=== PATIENT | female | born 1995 | race Caucasian/White ===

== ENCOUNTER 2024-06-22 06:40 | Outpatient (RCR) | payer BC, SELFPAY | END 2024-06-22 23:59 | disposition home or self-care (01) | LOC: RPT 06:40 | PROVIDERS: ATTENDING PHYSICIAN Obstetrics & Gynecology | DX: R32 Unspecified urinary incontinence (principal); M62.89 Other specified disorders of muscle | CPT/HCPCS: 97161; 97530 ==

== ENCOUNTER 2024-07-26 13:57 | Outpatient (RCR) | payer BC, SELFPAY | END 2024-07-26 23:59 | disposition home or self-care (01) | LOC: RPT 13:57 | PROVIDERS: ATTENDING PHYSICIAN Obstetrics & Gynecology | DX: R32 Unspecified urinary incontinence (principal); M62.89 Other specified disorders of muscle | CPT/HCPCS: 97110; 97112 ==

== ENCOUNTER 2024-08-25 16:39 | Outpatient (RCR) | payer BC, SELFPAY | END 2024-08-25 23:59 | disposition home or self-care (01) | LOC: RPT 16:39 | PROVIDERS: ATTENDING PHYSICIAN Obstetrics & Gynecology | DX: R32 Unspecified urinary incontinence (principal); M62.89 Other specified disorders of muscle; Z73.6 Limitation of activities due to disability | CPT/HCPCS: 97110; 97112; 97140 ==

== ENCOUNTER 2024-09-06 18:41 | Outpatient (RCR) | payer BC, SELFPAY | END 2024-09-06 23:59 | disposition home or self-care (01) | LOC: RPT 18:41 | PROVIDERS: ATTENDING PHYSICIAN Obstetrics & Gynecology | DX: R32 Unspecified urinary incontinence (principal); M62.89 Other specified disorders of muscle; Z73.6 Limitation of activities due to disability | CPT/HCPCS: 97110; 97112; 97140 ==

== ENCOUNTER 2024-10-16 07:06 | Emergency (ER) | payer BC, SELFPAY ==
[2024-10-16 07:08] VITALS: BP 111/79
[2024-10-16 07:55] VITALS: BMI 29.8
--- NOTE | 2024-10-16 07:57 | ED.GENMED ---
History of Present Illness
General
Chief Complaint: Abdominal Symptoms
Time Seen by Provider: 10/16/24 07:38
History of Present Illness
History of Present Illness:
29-year-old female without significant past medical history presenting to the emergency department for nausea, vomiting, diarrhea. Patient reports that this evening. Reports that her daughter got sent home from daycare because another individual
had a gastrointestinal virus. Her developed symptoms yesterday, and she developed symptoms last evening. No associated abdominal pain. Denies chest pain, difficulty breathing. Denies blood in her stool. She has been unable to tolerate
food or liquid by mouth. She has been trying Pedialyte. She is concerned for dehydration. Denies fever. Denies additional acute medical complaints.
Phy Exam
Physical Exam
Physical Exam:
General: Well-appearing, no clinical signs of dehydration, nontoxic and in no acute distress
HEENT: protecting airway
Neck: appears supple
CV: Normal heart rate, regular rhythm, no evidence of cyanosis
Resp: No accessory muscle use, no increased work of breathing, lungs clear to auscultation bilaterally
Abd: Soft and non-distended, no tenderness to palpation
Extremities: No deformities, no swelling
Neuro: alert, no focal neurologic deficit
: deferred
Rectal: deferred
Psych: Normal affect
Skin: Intact
Course
Orders/Labs/Results
Orders:
Orders
10/16/24 07:54
Urinalysis Reflex To Culture Urgent
0.9% Sodium Chloride 1000 ml [Nss] 1,000 ml IV BOLUS
Ondansetron Injectable [Zofran] 4 mg IV NOW STA
10/16/24 08:15
Basic Metabolic Panel Urgent
Complete Blood Count/With Diff Urgent
Lipase Urgent
Abnormal Lab Results
10/16/24
08:15
WBC 11.3 H 10^3/uL
(4.8-10.8)
RDW 11.2 L %
(11.5-14.5)
MPV 10.9 H fL
(7.4-10.4)
Absolute Neuts (auto) 10.4 H 10^3/uL
(1.4-6.5)
Absolute Lymphs (auto) 0.4 L 10^3/uL
(1.2-3.4)
Neutrophils % 91.9 H %
(42.2-75.2)
Lymphocytes % 3.9 L %
(20.5-51.1)
Carbon Dioxide 20 L mmol/L
(22-30)
BUN 21 H mg/dl
(7-17)
Creatinine 0.5 L mg/dL
(0.6-1.0)
Glucose 117 H mg/dl
(70-99)
10/16/24 08:15
10/16/24 08:15
Vital Signs
Initial and Last Documented VS:
Initial Vital Signs
Temp Pulse Resp BP Pulse Ox
98.7 F 133 18 111/79 96
10/16/24 07:08 10/16/24 07:08 10/16/24 07:08 10/16/24 07:08 10/16/24 07:08
Last Documented Vital Signs
Temp Pulse Resp BP Pulse Ox
99.8 F 114 19 111/79 96
10/16/24 09:15 10/16/24 09:15 10/16/24 09:15 10/16/24 07:08 10/16/24 07:08
MDM/Problems Addressed
MDM/Problems Addressed:
29-year-old female presenting for nausea, vomiting, diarrhea. Vital signs are significant for tachycardia, however patient appears anxious.
On exam, patient is afebrile, nontoxic. Benign abdominal exam, no tenderness to abdomen, soft and nondistended. Symptom presentation and physical exam appears most consistent with viral gastroenteritis. Will treat patient therapeutically with IV
fluids, Zofran, screen with laboratory analysis and reassess for improvement with p.o. challenge.
09:45 - Patient's labs are unremarkable. Patient reports symptom improvement, able to tolerate p.o. At this time feel that she is stable for discharge. Advised bland diet for the next 24 hours. Return precautions discussed and patient verbalized
understanding
*Critical Care Note
Total Time (30-74mins, 75-104mins- exclusive of procedures): Not Applicable
ED Attending Note
-
Portions of this chart may have been created with voice recognition software.� Occasional wrong word or��sound alike� substitutions may have occurred due to the inherent limitations of voice recognition software.
Discharge Plan
Departure
Referrals:
Joseph Craig MD [Family Provider] -
Interventions
Interventions:
*Risk Screen - Suicide Last Done: 10/16/24 07:08
*General Assessment Last Done: 10/16/24 07:08
ED- Fall Risk Assessment Last Done: 10/16/24 07:55
*ED COVID-19 Vaccine History Last Done: 10/16/24 07:08
GI-Pqbmdx-Ywlauqoyfb Assessment Last Done: 10/16/24 07:55
Discharge Date and Time
Print Language: UGANDAN
[2024-10-16] MEDS: NSS 1000 IV (08:18)
[2024-10-16] MEDS: ZOFRAN 4 MG IV (08:18)
[2024-10-16 08:27] LABS: % Basophils 0.2 % (0-2); % Eosinophils 0.2 % (0-6); % Immature Granulocytes 0.3 % (0-0.5); % Lymphocytes 3.9 % (20.5-51.1); % Monocytes 3.5 % (1.7-9.3); % Neutrophils 91.9 % (42.2-75.2); Absolute Lymphocytes 0.4 10^3/uL (1.2-3.4); Absolute Monocytes 0.4 10^3/uL (0.1-0.6); Absolute Neutrophils 10.4 10^3/uL (1.4-6.5); Hematocrit 42.8 % (37.0-47.0); Hemoglobin 14.8 g/dL (12.0-16.0); Mean Corp Hgb Conc. 34.6 g/dL (33.0-37.0); Mean Corpuscular Hgb 30.7 pg (27.0-31.0); Mean Corpuscular Volume 88.8 fL (81.0-99.0); Mean Platelet Volume 10.9 fL (7.4-10.4); Nucleated Red Blood Cells % 0 %; Platelet Count 244 10^3/uL (130-400); Red Blood Cell Count 4.82 10^6/uL (4.20-5.40); Red Cell Dist. Width 11.2 % (11.5-14.5); White Blood Cell Count 11.3 10^3/uL (4.8-10.8)
[2024-10-16 08:35] LABS: Blood Urea Nitrogen 21 mg/dl (7-17); Calcium 9.7 mg/dl (8.4-10.2); Carbon Dioxide 20 mmol/L (22-30); Chloride 104 mmol/L (98-107); Estimated Creatinine Clearance > 125 ml/min; Glucose 117 mg/dl (70-99); Lipase 51 U/L (23-300); Sodium 141 mmol/L (135-145); eGFR > 60.00
[2024-10-16 10:14] VITALS: BP 105/64
== END 2024-10-16 10:15 | disposition home or self-care (01) ==
LOC: EMR 07:06
PROVIDERS: EMERGENCY PHYSICIAN Student in an Organized Health Care Education/Training Program; FAMILY PHYSICIAN Internal Medicine
DX: R11.2 Nausea with vomiting, unspecified (principal); R19.7 Diarrhea, unspecified; R00.0 Tachycardia, unspecified
CPT/HCPCS: 96374; 99284; 80048; 83690; 85025

== ENCOUNTER 2024-11-28 17:26 | Outpatient (RCR) | payer BC, SELFPAY | END 2024-11-28 23:59 | disposition home or self-care (01) | LOC: RPT 17:26 | PROVIDERS: ATTENDING PHYSICIAN Obstetrics & Gynecology | DX: R32 Unspecified urinary incontinence (principal); M62.89 Other specified disorders of muscle; Z73.6 Limitation of activities due to disability | CPT/HCPCS: 97110; 97140; 97530 ==

== ENCOUNTER 2024-12-15 19:52 | Emergency (ER) | payer BC, SELFPAY ==
[2024-12-15 19:59] VITALS: BP 136/83
[2024-12-15 20:03] VITALS: BP 129/86
[2024-12-15 20:27] LABS: % Basophils 0.6 % (0-2); % Eosinophils 1.8 % (0-6); % Immature Granulocytes 0.2 % (0-0.5); % Lymphocytes 32.3 % (20.5-51.1); % Monocytes 6.9 % (1.7-9.3); % Neutrophils 58.2 % (42.2-75.2); Absolute Basophils 0.1 10^3/uL (0-0.2); Absolute Eosinophils 0.2 10^3/uL (0-0.7); Absolute Lymphocytes 2.8 10^3/uL (1.2-3.4); Absolute Monocytes 0.6 10^3/uL (0.1-0.6); Absolute Neutrophils 5.1 10^3/uL (1.4-6.5); Hematocrit 39.8 % (37.0-47.0); Hemoglobin 13.6 g/dL (12.0-16.0); Mean Corp Hgb Conc. 34.2 g/dL (33.0-37.0); Mean Corpuscular Hgb 30.3 pg (27.0-31.0); Mean Corpuscular Volume 88.6 fL (81.0-99.0); Mean Platelet Volume 10.3 fL (7.4-10.4); Nucleated Red Blood Cells % 0 %; Platelet Count 291 10^3/uL (130-400); Red Blood Cell Count 4.49 10^6/uL (4.20-5.40); Red Cell Dist. Width 11.2 % (11.5-14.5); Urine Albumin Negative (Neg - Trace); Urine Bilirubin Negative (Negative); Urine Character Clear (Clear); Urine Color Yellow; Urine Glucose Negative (Negative); Urine Ketone Negative (Negative); Urine Leukocyte Trace (Negative); Urine Nitrite Negative (Negative); Urine Occult Blood Negative (Negative); Urine Urobilinogen Negative (Neg - 1+); White Blood Cell Count 8.7 10^3/uL (4.8-10.8)
[2024-12-15 20:33] LABS: HCG, Serum Qualitative Screen Negative
[2024-12-15 20:37] LABS: ALT (SGPT) 15 U/L (0-35); AST (SGOT) 20 U/L (14-36); Albumin 4.6 g/dl (3.5-5.0); Alkaline Phosphatase 130 U/L (38-126); Blood Urea Nitrogen 21 mg/dl (7-17); Calcium 9.4 mg/dl (8.4-10.2); Carbon Dioxide 30 mmol/L (22-30); Chloride 103 mmol/L (98-107); Glucose 145 mg/dl (70-99); Potassium 3.8 mmol/L (3.5-5.1); Sodium 143 mmol/L (135-145); Total Bilirubin 0.2 mg/dl (0.2-1.3); Total Protein 7.6 g/dl (6.3-8.2); eGFR > 60.00
[2024-12-15 20:38] LABS: Urine Bacteria Few (Negative); Urine Red Blood Cell 0-2 /HPF (0-2); Urine Squamous Cell 0-2 /LPF (Few); Urine White Cell 0-2 /HPF (0-5)
[2024-12-15 20:48] LABS: Troponin I < 0.012 ng/ml
--- NOTE | 2024-12-15 23:33 | ED.GENMED ---
History of Present Illness
General
Chief Complaint: Blood Pressure Problem
Source: patient
Time Seen by Provider: 12/15/24 23:18
History of Present Illness
History of Present Illness:
29-year-old female presenting to the emergency department for evaluation of reportedly elevated blood pressure at home today stating she took her blood pressure because she developed a bitemporal headache accompanied with lightheadedness and felt
left arm paresthesia. Patient states all of the symptoms are now mostly resolved other than she still has a very faint headache. She did not take anything for her symptoms prior to arrival. Patient states that she does check her blood pressure
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 Patient notes that her blood pressure at home today was around 120 systolically and 80 diastolic but
notes that her blood pressure normally is around 100 systolic and less than 70 diastolic. Patient denies any fevers or infectious symptoms. She has no other concern time.
Past History
Past History
ED Past Medical History: None
ED Past Surgical History: None
Social History
Tobacco: Non-smoker
Alcohol: None
Drug: None
Personal:
Living: with family
Review of Systems
Review of Systems
All Other Systems: ROS reviewed and negative except as documented in HPI and ROS
Phy Exam
Physical Exam
Physical Exam:
GENERAL: Alert , in no apparent distress
EYE: conjunctiva clear
NECK: Supple
ENT: o/p clr, mmm.
CARDIAC: Regular rate and rhythm
LUNGS: Clear breath sounds bilaterally, no acute respiratory distress, no wheezes/rales/rhonchi
ABDOMEN: Soft, nontender, nondistended
NEUROLOGICAL: Alert and oriented
SKIN: Warm and dry, skin intact.
MUSCULOSKELETAL: well perfused.
PSYCH: Normal and appropriate interaction.
Course
Orders/Labs/Results
Orders:
Orders
12/15/24 20:04
Electrocardiogram (*1) Urgent
Reason for Study: Chest Pain
EKG- Treatment ONCE
12/15/24 20:05
Test Result ONCE
12/15/24 20:09
Complete Blood Count/With Diff Urgent
Comprehensive Metabolic Panel Urgent
HCG, Serum Qualitative Screen Urgent
Comment: Notify provider if positive test present
Troponin I Urgent
Urinalysis Reflex To Culture Urgent
Date Specimen was Collected: 12/15/24
Time Specimen was Collected: 20:06
Urine Microscopic Reflex Cult Urgent
Abnormal Lab Results
12/15/24
20:09
RDW 11.2 L %
(11.5-14.5)
BUN 21 H mg/dl
(7-17)
Glucose 145 H mg/dl
(70-99)
Alkaline Phosphatase 130 H U/L
(38-126)
Leukocyte Esterase Rfl Trace A
(Negative)
Urine Bacteria (Reflex) Few A
(Negative)
12/15/24 20:09
12/15/24 20:09
Vital Signs
Initial and Last Documented VS:
Initial Vital Signs
Temp Pulse Resp BP Pulse Ox
98.2 F 98 16 136/83 99
12/15/24 19:59 12/15/24 19:59 12/15/24 19:59 12/15/24 19:59 12/15/24 19:59
Last Documented Vital Signs
Temp Pulse Resp BP Pulse Ox
98.2 F 102 16 100/69 100
12/15/24 19:59 12/15/24 23:46 12/15/24 23:46 12/15/24 23:46 12/15/24 23:46
MDM/Problems Addressed
Differential Diagnosis Includes:
Tension headache, migraine headache, anxiety, there is no symptoms to suggest hypertensive urgency/emergency given patient's blood pressure was still within normal limits when she took her blood pressure at home today
MDM/Problems Addressed:
29-year-old female presenting to the emergency department for evaluation after she fell her blood pressure was too elevated which was causing her headache, left upper extremity paresthesia and lightheadedness. Patient is hemodynamically stable in
no acute distress. Labs ordered from triage and are all within normal limits. EKG nonischemic. Blood pressure remains within normal limits as well. Patient is otherwise stable for discharge home. Follow-up with primary care provider as needed.
*Pulse Oximetry
Patient hypoxic: no
*EKG
Heart Rate: 90
Rate: normal
Rhythm: sinus
[place]: normal axis
Ischemia: no ischemia
*Critical Care Note
Total Time (30-74mins, 75-104mins- exclusive of procedures): Not Applicable
ED Attending Note
-
Portions of this chart may have been created with voice recognition software.� Occasional wrong word or��sound alike� substitutions may have occurred due to the inherent limitations of voice recognition software.
Discharge Plan
Departure
Patient Disposition: Home (Routine Discharge)
Date of Disposition: 12/15/24
Time of Disposition: 23:33
Patient with high blood pressure during this ER visit?: No
Discharge Problem:
Headache
Instructions: Headache in adults - ED discharge instructions
Prescriptions:
No Action
ondansetron 4 mg Tablet,Disintegrating
4 mg PO TIDPRN PRN (Reason: nausea/vomiting) Qty: 9 0RF
Referrals:
Joseph Craig MD [Family Provider] -
Interventions
Interventions:
*Risk Screen - Suicide Last Done: 12/15/24 19:59
*General Assessment Last Done: 12/15/24 23:15
*Neglect/Abuse Screening Last Done: 12/15/24 19:59
ED- Fall Risk Assessment Last Done: 12/15/24 23:45
*ED COVID-19 Vaccine History Last Done: 12/15/24 23:37
*Nursing Disposition Last Done: 12/15/24 23:46
ED- Cardiac Assessment Last Done: 12/15/24 23:34
ED- Neurological Assessment Last Done: 12/15/24 23:15
ED- Pulmonary Assessment Last Done: 12/15/24 23:15
Discharge Date and Time
Discharge Date/Time: 12/15/24 23:47
Print Language: ITALIAN
[2024-12-15 23:39] VITALS: BMI 29.9
[2024-12-15 23:46] VITALS: BP 100/69
== END 2024-12-15 23:47 | disposition home or self-care (01) ==
LOC: EMR 19:52
PROVIDERS: EMERGENCY PHYSICIAN Emergency Medicine; FAMILY PHYSICIAN Internal Medicine
DX: R51.9 Headache, unspecified (principal)
CPT/HCPCS: 99284; 80053; 81003; 81015; 84484; 84703; 85025; 93005

== ENCOUNTER 2025-02-09 09:24 | Emergency (ER) | payer BC, SELFPAY ==
[2025-02-09 09:28] VITALS: BP 106/72
[2025-02-09 10:04] LABS: % Basophils 0.4 % (0-2); % Eosinophils 0.1 % (0-6); % Immature Granulocytes 0.3 % (0-0.5); % Lymphocytes 9.6 % (20.5-51.1); % Monocytes 4.8 % (1.7-9.3); % Neutrophils 84.8 % (42.2-75.2); Absolute Lymphocytes 0.9 10^3/uL (1.2-3.4); Absolute Monocytes 0.5 10^3/uL (0.1-0.6); Absolute Neutrophils 8.3 10^3/uL (1.4-6.5); Mean Corp Hgb Conc. 34.1 g/dL (33.0-37.0); Mean Corpuscular Hgb 30.4 pg (27.0-31.0); Mean Corpuscular Volume 89.1 fL (81.0-99.0); Mean Platelet Volume 10.4 fL (7.4-10.4); Nucleated Red Blood Cells % 0 %; Platelet Count 222 10^3/uL (130-400); White Blood Cell Count 9.7 10^3/uL (4.8-10.8)
--- NOTE | 2025-02-09 10:04 | ED.GENMED ---
History of Present Illness
General
Chief Complaint: Abdominal Symptoms
Source: patient
Exam Limitations: none
Time Seen by Provider: 02/09/25 09:41
History of Present Illness
History of Present Illness:
30-year-old female presenting with vomiting starting last night. She notes mild abdominal pain. No significant diarrhea but does note loose stool. The pain is resolved. No fevers or chills. Her daughter who she is breast-feeding her 9-month-old
had vomiting and diarrhea several days ago. She is healthy otherwise. No other complaints at this time. She has been breast-feeding however her supply is slowed up since being sick
Past History
Past History
ED Past Medical History: None
ED Past Surgical History: None
Social History
Tobacco: Non-smoker
Alcohol: None
Drug: None
Personal:
Living: with family
Phy Exam
Physical Exam
Physical Exam:
General: Well-appearing female no acute respiratory distress
HEENT: Normocephalic atraumatic mucosa dry
Heart: Regular rate and rhythm
Lungs: Clear no wheeze
Abdomen is soft nontender nondistended no guarding or rebound normal bowel sounds
Extremities: No cyanosis or edema
Course
Orders/Labs/Results
Orders:
Orders
02/09/25 09:51
CMP [Comprehensive Metabolic Panel] Urgent
Complete Blood Count/With Diff Urgent
Lipase Urgent
02/09/25 09:58
HCG, Urine Qualitative Screen Urgent
Date Specimen was Collected: 02/09/25
Time Specimen was Collected: 09:58
Urinalysis Reflex To Culture Urgent
Date Specimen was Collected: 02/09/25
Time Specimen was Collected: 09:58
Urine Microscopic Reflex Cult Urgent
Test Result ONCE
02/09/25 10:04
0.9% Sodium Chloride 1000 ml [Nss] 1,000 ml IV BOLUS
Ondansetron Injectable [Zofran] 4 mg IV NOW STA
02/09/25 10:05
Ondansetron Injectable [Zofran] 4 mg .ROUTE .STK-MED ONE
02/09/25 10:39
0.9% Sodium Chloride 1000 ml [Nss] 1,000 ml IV BOLUS
Abnormal Lab Results
02/09/25 02/09/25
09:51 09:58
RDW 11.0 L %
(11.5-14.5)
Absolute Neuts (auto) 8.3 H 10^3/uL
(1.4-6.5)
Absolute Lymphs (auto) 0.9 L 10^3/uL
(1.2-3.4)
Neutrophils % 84.8 H %
(42.2-75.2)
Lymphocytes % 9.6 L %
(20.5-51.1)
BUN 20 H mg/dl
(7-17)
Glucose 108 H mg/dl
(70-99)
Alkaline Phosphatase 127 H U/L
(38-126)
Urine Ketones 3+ A
(Negative)
Urine RBC 3-6 A /HPF
(0-2)
Urine Bacteria (Reflex) Few A
(Negative)
Urine Albumin (Reflex) 1+ A
(Neg - Trace)
02/09/25 09:51
02/09/25 09:51
Vital Signs
Initial and Last Documented VS:
Initial Vital Signs
Temp Pulse Resp BP Pulse Ox
99.0 F 125 18 106/72 95
02/09/25 09:28 02/09/25 09:28 02/09/25 09:28 02/09/25 09:28 02/09/25 09:28
Last Documented Vital Signs
Temp Pulse Resp BP Pulse Ox
98.7 F 91 18 103/57 95
02/09/25 11:58 02/09/25 11:23 02/09/25 11:23 02/09/25 11:23 02/09/25 10:12
MDM/Problems Addressed
Differential Diagnosis Includes:
Vomiting no diarrhea and nausea. Question viral illness versus foodborne illness. Abdominal exam benign do not suspect bowel obstruction. Considered CT but not indicated.
Will evaluate for electrolyte abnormality with blood work but clinically does appear dry. Fluids ordered Zofran ordered
*Critical Care Note
Total Time (30-74mins, 75-104mins- exclusive of procedures): Not Applicable
Update Note
Update Note:
Patient feeling better after fluids now tolerating oral fluids and crackers. Feels as though she has to go home and pump. Requesting to go home. Labs reviewed without significant finding. Suspect underlying viral illness. Stable for discharge
ED Attending Note
-
Portions of this chart may have been created with voice recognition software.� Occasional wrong word or��sound alike� substitutions may have occurred due to the inherent limitations of voice recognition software.
Discharge Plan
Departure
Patient Disposition: Home (Routine Discharge)
Date of Disposition: 02/09/25
Time of Disposition: 12:30
Patient with high blood pressure during this ER visit?: No
Discharge Problem:
Vomiting
Instructions: Nausea and Vomiting, Adult (DC)
Prescriptions:
New
ondansetron 4 mg tablet,disintegrating
4 mg PO Q8H PRN (Reason: nausea and vomiting) Qty: 10 0RF
No Action
1 tab PO . DIRECTED
Vitamin D3
1 tab PO .ASDIRECTED
Referrals:
Joseph Craig MD [Family Provider] -
Activity Restrictions/Additional Instructions:
Continue drinking plenty of clear liquids. Use Zofran if needed for nausea peer return if worse otherwise follow-up with your doctor
Interventions
Interventions:
*Risk Screen - Suicide Last Done: 02/09/25 09:27
*General Assessment Last Done: 02/09/25 09:27
*Neglect/Abuse Screening Last Done: 02/09/25 09:27
*ED- Fall Risk Assessment Last Done: 02/09/25 09:27
*ED COVID-19 Vaccine History Last Done: 02/09/25 09:27
AY-Xlodys-Zprpgihpmk Assessment Last Done: 02/09/25 09:47
Discharge Date and Time
Print Language: FRISIAN
[2025-02-09] MEDS: ZOFRAN 4 MG IV (10:07)
[2025-02-09] MEDS: NSS 1000 IV ×2 (10:08→10:43)
[2025-02-09 10:12] VITALS: BP 102/55
[2025-02-09 10:13] LABS: ALT (SGPT) 17 U/L (0-35); AST (SGOT) 21 U/L (14-36); Albumin 4.5 g/dl (3.5-5.0); Alkaline Phosphatase 127 U/L (38-126); Blood Urea Nitrogen 20 mg/dl (7-17); Calcium 9.3 mg/dl (8.4-10.2); Carbon Dioxide 24 mmol/L (22-30); Chloride 103 mmol/L (98-107); Glucose 108 mg/dl (70-99); Lipase 54 U/L (23-300); Potassium 3.7 mmol/L (3.5-5.1); Sodium 139 mmol/L (135-145); Total Bilirubin 0.8 mg/dl (0.2-1.3); Total Protein 7.5 g/dl (6.3-8.2); eGFR > 60.00
[2025-02-09 10:15] LABS: Urine Albumin 1+ (Neg - Trace); Urine Bilirubin Negative (Negative); Urine Character Clear (Clear); Urine Color Yellow; Urine Glucose Negative (Negative); Urine Ketone 3+ (Negative); Urine Leukocyte Negative (Negative); Urine Nitrite Negative (Negative); Urine Occult Blood Negative (Negative); Urine Urobilinogen Negative (Neg - 1+)
[2025-02-09 10:31] LABS: HCG, Urine Qualitative Screen Negative
[2025-02-09 10:38] LABS: Urine Mucus Few; Urine Squamous Cell >30 /LPF (Few)
[2025-02-09 10:39] LABS: Urine Bacteria Few (Negative)
[2025-02-09 11:23] VITALS: BP 103/57
== END 2025-02-09 12:44 | disposition home or self-care (01) ==
LOC: EMR 09:24
PROVIDERS: Physician Assistant; EMERGENCY PHYSICIAN Emergency Medicine; FAMILY PHYSICIAN Internal Medicine
DX: R11.10 Vomiting, unspecified (principal)
CPT/HCPCS: 96374; 99284; 96361; 80053; 81003; 81015; 81025; 83690; 85025

== ENCOUNTER 2025-10-14 22:26 | Emergency (ER) | payer BC, SELFPAY ==
[2025-10-14 22:30] VITALS: BP 100/79
[2025-10-14 23:02] VITALS: BMI 26.8
[2025-10-14 23:05] VITALS: BP 111/69
[2025-10-14] MEDS: NSS 1000 IV (23:17)
[2025-10-14 23:18] LABS: Hematocrit 39.8 % (37.0-47.0); Hemoglobin 13.4 g/dL (12.0-16.0); Mean Corp Hgb Conc. 33.7 g/dL (33.0-37.0); Mean Corpuscular Volume 88.8 fL (81.0-99.0); Nucleated Red Blood Cells % 0 %; Platelet Count 273 10^3/uL (130-400); Red Cell Dist. Width 11.1 % (11.5-14.5)
[2025-10-14] MEDS: ZOFRAN 4 MG IV (23:31)
[2025-10-14 23:41] LABS: ALT (SGPT) 32 U/L (0-35); AST (SGOT) 33 U/L (14-36); Albumin 4.9 g/dl (3.5-5.0); Alkaline Phosphatase 74 U/L (38-126); Blood Urea Nitrogen 11 mg/dl (7-17); Calcium 9.9 mg/dl (8.4-10.2); Carbon Dioxide 25 mmol/L (22-30); Chloride 101 mmol/L (98-107); Estimated Creatinine Clearance 120 ml/min; Glucose 98 mg/dl (70-99); Potassium 4.4 mmol/L (3.5-5.1); Sodium 135 mmol/L (135-145); Total Protein 8.5 g/dl (6.3-8.2); eGFR > 60.00
[2025-10-15] VITALS: BP 98/62
[2025-10-15 01:00] VITALS: BP 99/56
--- NOTE | 2025-10-15 01:13 | ED.GENMED ---
History of Present Illness
General
Chief Complaint: Dehydration Symptoms
Source: patient
Exam Limitations: none
Time Seen by Provider: 10/14/25 23:01
History of Present Illness
History of Present Illness:
Note:
CHIEF COMPLAINT(S)
Persistent nausea and vomiting in the context of a confirmed .
HISTORY OF PRESENT ILLNESS
The patient is a 30-year-old female, currently 10 weeks into her , presenting with symptoms indicative of hyperemesis gravidarum. The patient reports experiencing significant nausea and vomiting, initially occurring up to ten times per day,
which has now reduced to one or two episodes per day. Despite a reduction in frequency, she expresses continued difficulty in maintaining adequate oral hydration and nutrition. The patient has experienced an eight-pound weight loss within the past
two weeks. Notably, she describes persistent nausea and states, 'I still cant drink much,' associating the severity of symptoms with dehydration.
The patient has been utilizing oral Zofran (ondansetron) 4 mg at home, although she attests to minimal relief. She indicates a willingness to trial intravenous Zofran, acknowledging its increased efficacy based on past experiences with intravenous
administration. The patient is concerned about potential harm to the fetus due to excessive vomiting but reports no associated bleeding or significant abdominal cramping. She acknowledges some mild, right-sided abdominal pain but describes it as
non-severe. Vital status of the fetus was previously assessed in a clinical office setting via heart rate monitoring.
SOCIAL DETERMINANTS AFFECTING HEALTH
The patient reports difficulties with maintaining hydration and nutrition due to severe nausea and vomiting, impacting her daily functioning during this early stage of .
REVIEW OF SYSTEMS
- Gastrointestinal: Persistent nausea with emesis. Inability to maintain adequate oral hydration and nutrition.
- General: Weight loss of eight pounds over the past two weeks, despite decreased frequency of vomiting.
- Abdomen: Mild right-sided abdominal pain, described as non-severe.
PHYSICAL EXAM
- General: Alert, no acute distress.
- Skin: Warm, dry.
- Head: Normocephalic, atraumatic.
- Neck: Supple, trachea midline.
- Eye, Ears, Nose, Mouth and Throat: Oral mucosa moist.
- Cardiovascular: Normal peripheral perfusion, no edema.
- Respiratory: Respirations are non-labored.
- Gastrointestinal: Abdomen soft, non-tender, non-distended.
- Musculoskeletal: Normal range of motion, normal strength.
- Neurological: Alert and oriented to person, place, time, and situation, no focal neurological deficit observed.
- Psychiatric: Cooperative, appropriate mood & affect.
PROBLEM LIST
- Acute: Nausea and vomiting secondary to hyperemesis gravidarum.
- Concern for dehydration.
PLAN
- Administer intravenous fluids to manage dehydration.
- Initiate intravenous Zofran (ondansetron) for nausea control.
- Monitor electrolytes and check laboratory values to assess potassium and other relevant parameters.
- Assess heart rate to reassure the patient about well-being.
- Advise the patient on gradual dietary intake when nausea is under control to prevent gastric discomfort.
DIFFERENTIAL DIAGNOSIS
The Differential Diagnosis includes, in no particular order and is not limited to:
- Hyperemesis gravidarum
- Gastroenteritis
- Peptic ulcer disease
- Pancreatitis
- Cholecystitis
- Gastroesophageal reflux disease (GERD)
- Pregestational diabetes
- Preeclampsia with severe features
- Thyroid dysfunction
- Psychological factors (e.g., anxiety, stress related to )
Disposition:
SUMMARY OF ENCOUNTER
The patient is a 30-year-old female who presented to the emergency department with severe nausea and vomiting, consistent with hyperemesis gravidarum. Laboratory evaluation revealed a slight elevation in white blood cell count at 11.4, with
other lab values including hematocrit and chemistry being normal. heart tones were assessed and found to be normal. After administration of intravenous fluids, the patient reported significant improvement in symptoms and an enhanced ability to
tolerate liquids. The patient has a history of similar episodes in previous pregnancies and expressed a desire to return home as her condition stabilized.
DISPOSITION
Discharge.
ASSESSMENT
Hyperemesis gravidarum presenting with persistent nausea and vomiting.
EMERGENCY TREATMENTS ADMINISTERED
Intravenous fluids were administered, which led to symptom relief and improved hydration status.
PLAN
Discharge the patient with instructions to continue oral hydration and gradual dietary intake as tolerated to manage nausea. Arrange follow-up with obstetrics.
INDEPENDENT REVIEW OF LABS AND INTERPRETATION OF TESTS
My independent review of CBC shows a slightly elevated white blood cell count of 11.4, with the rest of the parameters within normal limits. Chemistry panel reviewed and interpreted as normal.
MEDICATION RECONCILIATION
Intravenous fluids administered for rehydration.
MEDICAL DECISION MAKING
- Complexity of Data Reviewed:
- Differential Diagnosis includes: Hyperemesis gravidarum, Gastroenteritis, Peptic ulcer disease, Pancreatitis, Cholecystitis, Gastroesophageal reflux disease (GERD), Pregestational diabetes, Preeclampsia with severe features, Thyroid dysfunction,
Psychological factors (e.g., anxiety, stress related to ).
- Data:
- Category 1:
My independent interpretation confirmed a slightly elevated white blood cell count of 11.4 on the CBC, but overall normal hematocrit and chemistry results.
- Category 2:
monitoring showed normal heart tones.
- Risk:
Decision for outpatient management with consideration of admission was based on symptom improvement post-treatment and stable vitals, despite initial severe symptoms and potential dehydration.
DIAGNOSIS
Hyperemesis gravidarum (O21.1).
Past History
Past History
ED Past Medical History: None
ED Past Surgical History: None
Social History
Tobacco: Non-smoker
Alcohol: None
Drug: None
Personal:
Living: with family
Phy Exam
Physical Exam
Physical Exam:
.
Course
Orders/Labs/Results
Orders:
Orders
10/14/25 23:01
0.9% Sodium Chloride 1000 ml [Nss] 1,000 ml IV BOLUS
10/14/25 23:13
CMP [Comprehensive Metabolic Panel] Urgent
Complete Blood Count/With Diff Urgent
10/14/25 23:21
Ondansetron Injectable [Zofran] 4 mg IV NOW STA
10/14/25 23:30
Heart Tones ONCE
Abnormal Lab Results
10/14/25
23:13
WBC 11.4 H 10^3/uL
(4.8-10.8)
RDW 11.1 L %
(11.5-14.5)
MPV 10.6 H fL
(7.4-10.4)
Abs Immat Gran (auto) 0.1 H 10^3/uL
(0-0.05)
Absolute Neuts (auto) 8.2 H 10^3/uL
(1.4-6.5)
Absolute Monos (auto) 0.7 H 10^3/uL
(0.1-0.6)
Creatinine 0.5 L mg/dL
(0.6-1.0)
Total Protein 8.5 H g/dl
(6.3-8.2)
10/14/25 23:13
10/14/25 23:13
Vital Signs
Initial and Last Documented VS:
Initial Vital Signs
Temp Pulse Resp BP Pulse Ox
98 F 84 16 100/79 97
10/14/25 22:30 10/14/25 22:30 10/14/25 22:30 10/14/25 22:30 10/14/25 22:30
Last Documented Vital Signs
Temp Pulse Resp BP Pulse Ox
98 F 66 21 98/62 97
10/14/25 22:30 10/15/25 00:15 10/15/25 00:15 10/15/25 00:00 10/15/25 00:15
*Pulse Oximetry
SaO2: 97
Oxygen Mode of Delivery: Room air
Patient hypoxic: no
*Critical Care Note
Total Time (30-74mins, 75-104mins- exclusive of procedures): Not Applicable
ED Attending Note
-
Portions of this chart may have been created with voice recognition software.� Occasional wrong word or��sound alike� substitutions may have occurred due to the inherent limitations of voice recognition software.
Discharge Plan
Departure
Patient Disposition: Home (Routine Discharge)
Date of Disposition: 10/15/25
Time of Disposition: 01:14
Patient with high blood pressure during this ER visit?: No
Discharge Problem:
Hyperemesis gravidarum
Instructions: Hyperemesis gravidarum
Prescriptions:
No Action
1 tab PO . DIRECTED
Vitamin D3
1 tab PO .ASDIRECTED
ondansetron 4 mg tablet,disintegrating
4 mg PO Q8H PRN (Reason: nausea and vomiting) Qty: 10 0RF
Activity Restrictions/Additional Instructions:
Please drink plenty fluids and stick to a clear liquid diet and advance diet slowly. Return immediately for worsening symptoms, intractable vomiting, blood in vomit, fevers or any other concerns.
Interventions
Interventions:
*Risk Screen - Suicide Last Done: 10/14/25 22:30
*General Assessment Last Done: 10/14/25 22:30
*Neglect/Abuse Screening Last Done: 10/14/25 22:30
*ED- Fall Risk Assessment Last Done: 10/14/25 23:02
*ED COVID-19 Vaccine History Last Done: 10/14/25 23:02
*ED Influenza Vaccine History Last Done: 10/14/25 23:02
ED- Cardiac Assessment Last Done: 10/14/25 23:19
ED- Neurological Assessment Last Done: 10/14/25 23:19
ED- Pulmonary Assessment Last Done: 10/14/25 23:19
Discharge Date and Time
Print Language: [place]
[2025-10-15 01:44] LABS: Urine Character Clear (Clear)
[2025-10-15 02:07] LABS: Urine Squamous Cell >30 /LPF (Few)
[2025-10-15 02:08] LABS: Urine Red Blood Cell 0-2 /HPF (0-2); Urine White Cell 0-2 /HPF (0-5)
== END 2025-10-15 01:53 | disposition home or self-care (01) ==
LOC: EMR 22:26
PROVIDERS: EMERGENCY PHYSICIAN Emergency Medicine; FAMILY PHYSICIAN Internal Medicine
DX: O21.1 Hyperemesis gravidarum with metabolic disturbance (principal); Z3A.10 10 weeks gestation of pregnancy
CPT/HCPCS: 99284; 96374; 96361 ×2; 80053; 81003; 81015; 85025; 87077; 87086; 87147

== ENCOUNTER 2025-10-30 05:32 | Emergency (ER) | payer BC, SELFPAY ==
[2025-10-30] VITALS (13 sets, daily range): BP systolic 81–104; BP diastolic 50–83; BMI 26.5
--- NOTE | 2025-10-30 06:36 | ED.GENMED ---
History of Present Illness
<Israel Meyer, DO - Last Filed: 10/30/25 06:38>
General
Chief Complaint: Dizziness
Time Seen by Provider: 10/30/25 06:05
<Edilma Graff MD, Resident - Last Filed: 10/30/25 09:46>
General
Source: patient
Exam Limitations: none
Nursing documentation reviewed up to this point in time: agreed with
History of Present Illness
History of Present Illness:
30yo F, 14wks , A0, with a hx of hyperemesis gravidarum who presents with episodes of dizziness.
Pt reports that last night she woke up twice to urinate, and both times she felt like the room was spinning/dizzy when she stood and walks. Denies any feelings of dizziness when she is lying supine. Denies any blurriness or change in vision. Denies
any worsening OLIVA other than mild OLIVA that comes and goes. Pt was last seen in the ED in September for hyperemesis gravidarum, was given IV zofran. Pt reports that vomiting has improved somewhat since then, but she still has 2 episodes emesis/day. Has
been able to keep down about 1 meal/day and only sips of water. She does not take antiemetics at home.
Denies any vaginal bleeding. Denies any abdominal pain other than an intermittent twinge in LLQ/groin area that happened once. Denies any f/c. Denies taking any new medications. Takes B6 and unisom antihistamine sleep aid nightly. Pt with hx of
vasovagal syncope 1x during prior .
Past History
<Edilma Graff MD, Resident - Last Filed: 10/30/25 09:46>
Past History
ED Past Medical History: None
ED Past Surgical History: None
Patient has exhibited threatening behavior?: No
PSI?: No
Social History
Tobacco: Non-smoker
Alcohol: None
Drug: None
Personal:
Living: with family
Review of Systems
<Edilma Graff MD, Resident - Last Filed: 10/30/25 09:46>
Review of Systems
All Other Systems: ROS reviewed and negative except as documented in HPI and ROS
Constitutional: Reports sleep disturbance
EENT: Reports no symptoms
Respiratory: Reports no symptoms
Cardiac: Reports palpitations
ABD/GI: Reports nausea and vomiting
: Reports no symptoms
Musculoskeletal: Reports no symptoms
Skin: Reports no symptoms
Neurological: Reports dizzy
Psychiatric: Reports no symptoms
Phy Exam
<Edilma Graff MD, Resident - Last Filed: 10/30/25 09:46>
General Physical Exam
General Presentation: mild distress
General age: appears stated age
General Skin: warm and dry
General Habitus: normal and other ()
General Mental: alert
Cardiovascular Exam
Cardiovascular Exam: regular rate/rhythm and no edema
Heart Sounds: normal
Pulmonary Exam
Pulmonary Exam: no respiratory distress
Gastrointestinal Exam
Gastrointestinal Exam: non tender, soft and non distended ( 14 wk)
Neurological Exam
Neurological Exam: alert and speech normal
Skin Exam
Skin Exam: normal color
Psychiatric Exam
Psychiatric Exam: normal mood/affect
Course
<Israel Meyer, DO - Last Filed: 10/30/25 06:38>
Orders/Labs/Results
Orders:
Orders
10/30/25 06:31
Complete Blood Count/With Diff Urgent
Comprehensive Metabolic Panel Urgent
TSH Reflex To Free T4 Urgent
10/30/25 06:35
Electrocardiogram (*1) Urgent
Reason for Study: Palpitations
EKG- Treatment ONCE
0.9% Sodium Chloride 1000 ml [Nss] 1,000 ml IV BOLUS
10/30/25 06:42
Add On- LAB Urgent
Tests Added?: TSH
10/30/25 08:17
Urinalysis Reflex To Culture Urgent
Date Specimen was Collected: 10/30/25
Time Specimen was Collected: 08:15
10/30/25 08:53
0.9% Sodium Chloride 500 ml [Nss] 500 ml IV BOLUS
Abnormal Lab Results
10/30/25
06:31
RBC 3.95 L 10^6/uL
(4.20-5.40)
Hct 34.4 L %
(37.0-47.0)
MCH 31.1 H pg
(27.0-31.0)
RDW 11.1 L %
(11.5-14.5)
MPV 10.7 H fL
(7.4-10.4)
Sodium 133 L mmol/L
(135-145)
BUN 5 L mg/dl
(7-17)
Creatinine 0.5 L mg/dL
(0.6-1.0)
Glucose 100 H mg/dl
(70-99)
10/30/25 06:31
10/30/25 06:31
Vital Signs
Initial and Last Documented VS:
Initial Vital Signs
Pulse Resp BP Pulse Ox
87 18 97/61 98
10/30/25 05:35 10/30/25 05:35 10/30/25 05:35 10/30/25 05:35
Last Documented Vital Signs
Temp Pulse Resp BP Pulse Ox
98.3 F 78 25 91/77 98
10/30/25 06:58 10/30/25 09:30 10/30/25 09:30 10/30/25 09:30 10/30/25 08:00
<Edilma Graff MD, Resident - Last Filed: 10/30/25 09:46>
Orders/Labs/Results
Orders:
Orders
10/30/25 06:31
Complete Blood Count/With Diff Urgent
Comprehensive Metabolic Panel Urgent
TSH Reflex To Free T4 Urgent
10/30/25 06:35
Electrocardiogram (*1) Urgent
Reason for Study: Palpitations
EKG- Treatment ONCE
0.9% Sodium Chloride 1000 ml [Nss] 1,000 ml IV BOLUS
10/30/25 06:42
Add On- LAB Urgent
Tests Added?: TSH
10/30/25 08:17
Urinalysis Reflex To Culture Urgent
Date Specimen was Collected: 10/30/25
Time Specimen was Collected: 08:15
10/30/25 08:53
0.9% Sodium Chloride 500 ml [Nss] 500 ml IV BOLUS
Abnormal Lab Results
10/30/25
06:31
RBC 3.95 L 10^6/uL
(4.20-5.40)
Hct 34.4 L %
(37.0-47.0)
MCH 31.1 H pg
(27.0-31.0)
RDW 11.1 L %
(11.5-14.5)
MPV 10.7 H fL
(7.4-10.4)
Sodium 133 L mmol/L
(135-145)
BUN 5 L mg/dl
(7-17)
Creatinine 0.5 L mg/dL
(0.6-1.0)
Glucose 100 H mg/dl
(70-99)
10/30/25 06:31
10/30/25 06:31
Vital Signs
Initial and Last Documented VS:
Initial Vital Signs
Pulse Resp BP Pulse Ox
87 18 97/61 98
10/30/25 05:35 10/30/25 05:35 10/30/25 05:35 10/30/25 05:35
Last Documented Vital Signs
Temp Pulse Resp BP Pulse Ox
98.3 F 78 25 91/77 98
10/30/25 06:58 10/30/25 09:30 10/30/25 09:30 10/30/25 09:30 10/30/25 08:00
<Edilma Graff MD, Resident - Last Filed: 10/30/25 09:46>
MDM/Problems Addressed
Differential Diagnosis Includes:
Ddx:
Orthostatic hypotension, dehydration in s/o hyperemesis gravidarum (sx worse w standing from supine, hx poor PO intake, compounded by lower SVR in )
Unlikely:
Arrhythmia leading to cardiogenic pre-syncope
Intrauterine bleed leading to anemia
MDM/Problems Addressed:
- CBC, CMP
- TSH
- EKG
- Give 1L NSS bolus
<Edilma Graff MD, Resident - Last Filed: 10/30/25 09:46>
*Pulse Oximetry
SaO2: 98
Oxygen Mode of Delivery: Room air
Patient hypoxic: no
*EKG
Interpreted by ED Provider?: Yes
EKG Intrepretation Date: 10/30/25
Interpretation: normal
Rate: normal
Rhythm: sinus
[employer]: normal axis
Interval: normal interval
QRS Pattern: normal QRS
*Critical Care Note
Total Time (30-74mins, 75-104mins- exclusive of procedures): Not Applicable
<Edilma Graff MD, Resident - Last Filed: 10/30/25 09:46>
Update Note
Update Note:
8:45am
heart rate by doppler US: 152bpm (wnl)
UA without abnormalities
Pt with improved dizziness s/p 1L NSS & eating cracker but still some dizziness
Will give 500cc additional bolus prior to discharge
9:45am
Pt dizziness improved
ED Attending Note
<Israel Meyer DO - Last Filed: 10/30/25 06:38>
ED Attending Note
Patient seen and examined by attending physician: Yes
I performed a history and physical exam of patient and discussed management with resident, I reviewed resident's note and agree with documented findings and plan of care.: Yes
<Edilma Graff MD, Resident - Last Filed: 10/30/25 09:46>
-
Portions of this chart may have been created with voice recognition software.� Occasional wrong word or��sound alike� substitutions may have occurred due to the inherent limitations of voice recognition software.
Discharge Plan
Departure
Patient Disposition: Home (Routine Discharge)
Date of Disposition: 10/30/25
Time of Disposition: 09:42
Patient with high blood pressure during this ER visit?: No
Condition: Good
Covid-19: Not Applicable
Discharge Problem:
Orthostasis
Prescriptions:
No Action
Vitamin B-6 50 mg Capsule
50 mg PO BID
Unisom (diphenhydramine)
12.5 mg PO HS
Referrals:
Joseph Craig MD [Family Provider, Internal Medicine]
Activity Restrictions/Additional Instructions:
You were seen in the ED for dizziness and lightheadedness when standing. This was likely due to being dehydrated due to your hyperemesis gravidarum and low fluid intake.
Your urine was not concerning for a urinary tract infection, you were not anemia, your thyroid function was normal, and the heart rate was normal (152bpm). You were given 1.5L of IV fluids.
Please return to the ED if you have worsening of headache, blurry vision, severe worsening of abdominal pain or emesis, or a fall at home.
Interventions
Interventions:
*Risk Screen - Suicide Last Done: 10/30/25 05:35
*General Assessment Last Done: 10/30/25 05:35
*ED- Fall Risk Assessment Last Done: 10/30/25 05:35
*ED COVID-19 Vaccine History Last Done: 10/30/25 05:35
*ED Influenza Vaccine History Last Done: 10/30/25 05:35
ED- Neurological Assessment Last Done: 10/30/25 07:04
ED- Cardiac Assessment Last Done: 10/30/25 07:04
ED Swallowing Screen Last Done: 10/30/25 06:39
Discharge Date and Time
Print Language: ANGUILLAN
[2025-10-30 06:42] LABS: Hematocrit 34.4 % (37.0-47.0); Hemoglobin 12.3 g/dL (12.0-16.0); Mean Corp Hgb Conc. 35.8 g/dL (33.0-37.0); Mean Corpuscular Volume 87.1 fL (81.0-99.0); Nucleated Red Blood Cells % 0 %; Platelet Count 229 10^3/uL (130-400); Red Cell Dist. Width 11.1 % (11.5-14.5)
[2025-10-30] MEDS: NSS 1000 IV (06:55)
[2025-10-30 07:02] LABS: ALT (SGPT) 21 U/L (0-35); AST (SGOT) 18 U/L (14-36); Albumin 3.9 g/dl (3.5-5.0); Alkaline Phosphatase 57 U/L (38-126); Blood Urea Nitrogen 5 mg/dl (7-17); Calcium 9.0 mg/dl (8.4-10.2); Carbon Dioxide 25 mmol/L (22-30); Chloride 103 mmol/L (98-107); Estimated Creatinine Clearance 120 ml/min; Glucose 100 mg/dl (70-99); Potassium 3.6 mmol/L (3.5-5.1); Sodium 133 mmol/L (135-145); Total Protein 6.9 g/dl (6.3-8.2); eGFR > 60.00
[2025-10-30 08:41] LABS: Urine Character Clear (Clear)
[2025-10-30] MEDS: NSS 500 IV (09:07)
== END 2025-10-30 10:16 | disposition home or self-care (01) ==
LOC: EMR 05:32
PROVIDERS: EMERGENCY PHYSICIAN Emergency Medicine; FAMILY PHYSICIAN Internal Medicine
DX: O99.412 Diseases of the circulatory system complicating pregnancy, second trimester (principal); I95.1 Orthostatic hypotension; Z3A.14 14 weeks gestation of pregnancy
CPT/HCPCS: 99284; 96360; 80053; 81003; 84443; 85025; 93005